=== PATIENT | male | born 1940 | race Two or more races ===

== ENCOUNTER 2018-03-10 11:20 | Outpatient (CLI) | payer OTHER | END 2018-03-10 11:25 | disposition home or self-care (01) | LOC: RAD 501 11:20 | DX: M77.31 Calcaneal spur, right foot (principal); M77.32 Calcaneal spur, left foot ==

== ENCOUNTER 2018-10-17 13:22 | Outpatient (CLI) | payer OTHER | END 2018-10-17 13:31 | disposition home or self-care (01) | LOC: RAD 501 13:22 | DX: M79.672 Pain in left foot (principal) ==

== ENCOUNTER 2018-11-26 10:49 | Outpatient (CLI) | payer OTHER | END 2018-11-26 11:03 | disposition home or self-care (01) | LOC: RAD 501 10:49 | DX: M77.32 Calcaneal spur, left foot (principal) ==